=== PATIENT | female | born 1945 | race Caucasian/White ===

== ENCOUNTER 2018-09-07 03:00 | Inpatient (IN) | payer MEDICARE, OTHER ==
[2018-09-07] MEDS ORDERED: Acetaminophen TAB* 325 MG PO PRN (14:28)
[2018-09-07] MEDS ORDERED: Simethicone TAB* 80 MG TAB.CHEW PO PRN (14:28)
[2018-09-07] MEDS ORDERED: oxyCODONE TAB* 5 MG TAB PO PRN (14:28)
[2018-09-07] MEDS: NS 0.9% 1000 ML* 1,000 ML IV SCH (16:30)
[2018-09-07] MEDS: Enoxaparin(*) 40 MG/0.4 ML SYR SUBCUT SCH (16:30)
[2018-09-07] MEDS: Morphine TAB Extended Release (*) 15 MG TAB.ER PO SCH (20:50)
[2018-09-08] MEDS: NS 0.9% 1000 ML* 1,000 ML IV SCH (00:47)
[2018-09-08 05:28] LABS: Hematocrit 23 % (35-47); Hemoglobin 7.7 g/dl (12.0-16.0); Mean Corpuscular HGB Conc 34 g/dl (31-36); Mean Corpuscular Hemoglobin 28 pg (27-31); Mean Corpuscular Volume 83 fL (80-97); Platelet Count 194 10^3/ul (150-450); Red Blood Count 2.72 10^6/ul (4.00-5.40); Red Cell Distribution Width 16 % (10.5-15); White Blood Count 10.3 10^3/ul (3.5-10.8)
[2018-09-08 05:46] LABS: EGFR Non-African American 72.8 (>60)
[2018-09-08] MEDS: Omeprazole CAP* 20 MG PO SCH (09:49)
[2018-09-08] MEDS: Morphine TAB Extended Release (*) 15 MG TAB.ER PO SCH ×3 (09:49→21:22)
[2018-09-08] MEDS ORDERED: NS 0.9% 1000 ML* 1,000 ML IV SCH (12:33)
--- NOTE | 2018-09-08 12:44 | PN ---
Progress Note - Progress Note Date of Service: 09/08/18 SOAP: Subjective: [Admitted yesterday with severe fatigue and dehydration after a period of diarrhea. She received IV fluids and feels much better this am. No abd pain, n /v/d. She does have a productive cough. No fevers overnight. CXR suggestive of RLL PNA with peripneumonic effusion.] Objective: [ Laboratory Results - last 24 hr 09/07/18 09/08/18 09/08/18 16:50 05:05 05:05 WBC 10.3 RBC 2.72 L Hgb 7.7 L Hct 23 L MCV 83 MCH 28 MCHC 34 RDW 16 H Plt Count 194 MPV 7.0 L Sodium 133 L Potassium 3.7 Chloride 106 Carbon Dioxide 23 Anion Gap 4 BUN 19 Creatinine 0.78 Est GFR ( Amer) 88.1 Est GFR (Non-Af Amer) 72.8 BUN/Creatinine Ratio 24.4 H Glucose 96 Calcium 7.9 L Magnesium 2.0 Iron 16 L TIBC 153 L % Saturation 10 L Unsat Iron Binding < 138 Transferrin 109 L Ferritin 509.7 H Total Bilirubin 0.60 AST 39 ALT 14 Alkaline Phosphatase 57 Total Protein 5.3 L Albumin 2.4 L Globulin 2.9 Albumin/Globulin Ratio 0.8 L Vitamin B12 09/08/18 09:00 WBC RBC Hgb Hct MCV MCH MCHC RDW Plt Count MPV Sodium Potassium Chloride Carbon Dioxide Anion Gap BUN Creatinine Est GFR ( Amer) Est GFR (Non-Af Amer) BUN/Creatinine Ratio Glucose Calcium Magnesium Iron TIBC % Saturation Unsat Iron Binding Transferrin Ferritin Total Bilirubin AST ALT Alkaline Phosphatase Total Protein Albumin Globulin Albumin/Globulin Ratio Vitamin B12 1394 H Acetaminophen (Tylenol Tab*) 650 mg PO Q4HR PRN PRN Reason: PAIN Enoxaparin Sodium (Lovenox(*)) 40 mg SUBCUT Q24H [facility] Last Admin: 09/07/18 16:30 Dose: 40 mg Levofloxacin/Dextrose (Levaquin 750 Mg Ivpremix(*)) 750 mg in 150 mls @ 100 mls /hr IVPB Q24H [facility] Morphine Sulfate (Ms Contin(*)) 15 mg PO TID [facility] Last Admin: 09/08/18 09:49 Dose: 15 mg Omeprazole (Prilosec Cap*) 20 mg PO DAILY@0730 [facility] Last Admin: 09/08/18 09:49 Dose: 20 mg Ondansetron HCl (Zofran Inj*) 4 mg IV Q6H PRN PRN Reason: NAUSEA Oxycodone HCl (Roxycodone Tab*) 5 mg PO Q6H PRN PRN Reason: PAIN Simethicone (Mylicon Tab*) 80 mg PO Q6HR PRN PRN Reason: INDIGESTION Vital Signs: Temp Pulse Resp BP Pulse Ox 98.5 F 97 16 119/62 97 09/08/18 07:39 09/08/18 07:39 09/08/18 09:49 09/08/18 07:39 09/08/18 07:39 Exam: Gen: 73 yo female who appears mildly ill but in NAD and accompanied by her CV: RRR, no m/r/g Resp: few crackles in RLL Abd: soft nonTTP Ext: no edema Skin: stage 2 decubitus ulcer over sacrum] Assessment: [73 yo female with metastatic esophageal CA admitted with severe malaise, dehydration following a period of diarrhea. She has spent most of the last week in bed. CXR shows RLL infiltrate.] Plan: [1. PNA - RLL infiltrate - start Levaquin IV - afebrile 2. Anemia - multifactorial mild iron deficiency and chemotherapy related - transfuse 2U PRBCs today 3. Sacral ulcer - apply barrier cream - no evidence of secondary infection at this time 4. Esophageal CA - hold chemotherapy until recovered 5. Malaise/deconditioning - PT eval Dispo: anticipate dc home within the next few days]
[2018-09-08] MEDS: Levofloxacin 750 MG IVPREMIX(* 750 MG/150 ML BAG IVPB SCH (13:16)
[2018-09-08 15:58] LABS: Urine Appearance Cloudy; Urine Blood 1+ (Negative); Urine Color Amber; Urine Ketones Trace (Negative); Urine Protein Negative (Negative); Urine Red Blood Cell 1+(3-5/hpf) (Absent); Urine Specific Gravity 1.025 (1.010-1.030); Urine Urobilinogen Positive (Negative); Urine White Blood Cell 3+(>20/hpf) (Absent)
[2018-09-08] MEDS: Enoxaparin(*) 40 MG/0.4 ML SYR SUBCUT SCH (17:38)
[2018-09-09] MEDS: Ondansetron INJ* 2 MG/ML VIAL IV PRN ×3 (01:36→23:34)
[2018-09-09 09:30] LABS: Hematocrit 31 % (35-47); Hemoglobin 10.6 g/dl (12.0-16.0); Mean Corpuscular HGB Conc 34 g/dl (31-36); Mean Corpuscular Hemoglobin 29 pg (27-31); Mean Corpuscular Volume 84 fL (80-97); Platelet Count 200 10^3/ul (150-450); Red Blood Count 3.71 10^6/ul (4.00-5.40); Red Cell Distribution Width 17 % (10.5-15); White Blood Count 10.1 10^3/ul (3.5-10.8)
[2018-09-09 09:44] LABS: EGFR Non-African American 82.5 (>60)
[2018-09-09] MEDS: Morphine TAB Extended Release (*) 15 MG TAB.ER PO SCH ×3 (10:23→21:16)
[2018-09-09] MEDS: Omeprazole CAP* 20 MG PO SCH (10:23)
--- NOTE | 2018-09-09 10:31 | PN ---
Progress Note - Progress Note Date of Service: 09/09/18 SOAP: Subjective: []Feeling better today. States BMs normal. Has been up with nursing to bathroom. PT report released to nursing mobility. Moving independently in bed though tending to lay on her back. notes poor intake today and over last week. States she threw up this AM and is curious if this is related to auto-sub of omeprazole for esomeprazole. is curious about care of buttocks. Per nursing report pt. hallucinated dogs nipping at her feet this AM. When questioned is vague regarding her mental status, however then questions "why is she so confused." Medications: Acetaminophen (Tylenol Tab*) 650 mg PO Q4HR PRN PRN Reason: PAIN Last Admin: 09/08/18 19:31 Dose: 650 mg Enoxaparin Sodium (Lovenox(*)) 40 mg SUBCUT Q24H [facility] Last Admin: 09/08/18 17:38 Dose: 40 mg Heparin Sodium (Porcine) (Heparin Flush Port (Ivad)) 5 ml FLUSH DAILY [facility]; Protocol Levofloxacin/Dextrose (Levaquin 750 Mg Ivpremix(*)) 750 mg in 150 mls @ 100 mls /hr IVPB Q24H [facility] Last Admin: 09/08/18 13:16 Dose: 100 mls/hr Morphine Sulfate (Ms Contin(*)) 15 mg PO TID [facility] Last Admin: 09/09/18 10:23 Dose: 15 mg Omeprazole (Prilosec Cap*) 20 mg PO DAILY@0730 [facility] Ondansetron HCl (Zofran Inj*) 4 mg IV Q6H PRN PRN Reason: NAUSEA Last Admin: 09/09/18 01:36 Dose: 4 mg Oxycodone HCl (Roxycodone Tab*) 5 mg PO Q6H PRN PRN Reason: PAIN Simethicone (Mylicon Tab*) 80 mg PO Q6HR PRN PRN Reason: INDIGESTION Triamcinolone Acetonide (Triamcinolone 0.1% Paste *) 1 applic TOPICAL TID PRN PRN Reason: PAIN Objective: [] Vital Signs Temp Pulse Resp BP Pulse Ox 97.8 F 89 18 113/64 99 09/09/18 07:40 09/09/18 07:40 09/09/18 10:23 09/09/18 07:40 09/09/18 07:40 Alert and oriented, however incomplete comprehension of specifics - occ. wording finding difficulty and some abstract thought MCCALL, with strength 4/4 bilat. HRR, S1S2 LS clear bilat. +BS, abd. soft and non-tender +PP=bilat, no edema Laboratory Results - last 24 hr 09/08/18 09/08/18 09/09/18 05:05 15:00 09:10 WBC 10.1 RBC 3.71 L Hgb 10.6 L Hct 31 L MCV 84 MCH 29 MCHC 34 RDW 17 H Plt Count 200 MPV 7.0 L Sodium Potassium Chloride Carbon Dioxide Anion Gap BUN Creatinine Est GFR ( Amer) Est GFR (Non-Af Amer) BUN/Creatinine Ratio Glucose Calcium Total Bilirubin AST ALT Alkaline Phosphatase Total Protein Albumin Globulin Albumin/Globulin Ratio Urine Color Astrid Urine Appearance Cloudy Urine pH 5.0 Ur Specific [place] 1.025 Urine Protein Negative Urine Ketones Trace A Urine Blood 1+ A Urine Nitrate Negative Urine Bilirubin Negative Urine Urobilinogen Positive A Ur Leukocyte Esterase 2+ A Urine WBC (Auto) 3+(>20/hpf) A Urine RBC (Auto) 1+(3-5/hpf) A Ur Squamous Epith Cells Present A Urine Bacteria Absent Urine Glucose Negative Blood Type O Positive Antibody Screen Negative Crossmatch See Detail 09/09/18 09:10 WBC RBC Hgb Hct MCV MCH MCHC RDW Plt Count MPV Sodium 134 L Potassium 3.5 Chloride 105 Carbon Dioxide 24 Anion Gap 5 BUN 14 Creatinine 0.70 Est GFR ( Amer) 99.8 Est GFR (Non-Af Amer) 82.5 BUN/Creatinine Ratio 20.0 Glucose 106 H Calcium 8.1 L Total Bilirubin 1.00 AST 28 ALT 15 Alkaline Phosphatase 59 Total Protein 5.8 L Albumin 2.5 L Globulin 3.3 Albumin/Globulin Ratio 0.8 L Urine Color Urine Appearance Urine pH Ur Specific [place] Urine Protein Urine Ketones Urine Blood Urine Nitrate Urine Bilirubin Urine Urobilinogen Ur Leukocyte Esterase Urine WBC (Auto) Urine RBC (Auto) Ur Squamous Epith Cells Urine Bacteria Urine Glucose Blood Type Antibody Screen Crossmatch Assessment: []73 yo old female with metastatic esophageal cancer, recently progressive off therapy with re-initiation of Taxol/Ramicirumab (C1D15 08/25), admitted with severe dehydration related to diarrhea found to have a RLL PNA and now with concern for altered mental status. Plan: []1. Altered mental status with hallucinations: concerning for [employer] mets or leptomeningeal involvement, though acute illness/dehydration with admission may cause some delirium and I am concerned for underlying progressive decline r/t cancer. - Obtain MRI w/wo contrast 2. Decubitus and anorexia: check pre-albumin, suspect severe caloric protein malnutrition - continue barrier cream, nursing to provide some education to re: care 3. Anemia s/p 2 units PRBCs: likely r/t chemotherapy, though to be cautious will check stool occult blood 4. Diarrhea with subsequent dehydration: appears resolved, question of viral illness d/t acute onset after feeling very well, however potentially related to tx., no further intervention at this time
[2018-09-09 10:54] LABS: ABS Basophils 0 10^3/ul (0-0.2); ABS Eosinophils 0 10^3/ul (0-0.6); ABS Lymphocytes 0.6 10^3/ul (1.0-4.8); ABS Neutrophils 8.5 10^3/ul (1.5-7.7); ABS Nucleated RBC 0 10^3/ul; Eosinophil % 0.2 %; Lymphocyte % 5.6 %; Nucleated Red Blood Cells % 0.1
[2018-09-09] MEDS: Triamcinolone PASTE 0.1% (NF) 5 GM TUBE TOPICAL PRN (14:16)
[2018-09-09] MEDS: Levofloxacin 750 MG IVPREMIX(* 750 MG/150 ML BAG IVPB SCH (14:16)
[2018-09-09] MEDS ORDERED: Gadoteridol* (CONTRAST) 279.3 MG/ML 10 ML IV ONE (16:23)
[2018-09-09] MEDS: Enoxaparin(*) 40 MG/0.4 ML SYR SUBCUT SCH (17:30)
[2018-09-10] MEDS: Morphine TAB Extended Release (*) 15 MG TAB.ER PO SCH ×3 (08:07→22:25)
[2018-09-10] MEDS: Omeprazole CAP* 20 MG PO SCH (08:07)
[2018-09-10] MEDS: Ondansetron INJ* 2 MG/ML VIAL IV PRN (08:08)
--- NOTE | 2018-09-10 08:55 | PN ---
Progress Note - Progress Note Date of Service: 09/10/18 SOAP: Subjective: []She is feeling better then first few days. She is oriented to hospital today. Pain is better on Morphine. Not eating much at all, is getting up out of bed some. Skin ulcer has not gotten better. Still very weak. Wants to go home. Acetaminophen (Tylenol Tab*) 650 mg PO Q4HR PRN PRN Reason: PAIN Last Admin: 09/08/18 19:31 Dose: 650 mg Enoxaparin Sodium (Lovenox(*)) 40 mg SUBCUT Q24H [facility] Last Admin: 09/09/18 17:30 Dose: 40 mg Heparin Sodium (Porcine) (Heparin Flush Port (Ivad)) 5 ml FLUSH DAILY [facility]; Protocol Last Admin: 09/10/18 08:08 Dose: 5 ml Levofloxacin/Dextrose (Levaquin 750 Mg Ivpremix(*)) 750 mg in 150 mls @ 100 mls /hr IVPB Q24H [facility] Last Admin: 09/09/18 14:16 Dose: 100 mls/hr Megestrol Acetate (Megestrol Susp*) 800 mg PO DAILY [facility] Morphine Sulfate (Ms Contin(*)) 15 mg PO TID [facility] Last Admin: 09/10/18 08:07 Dose: 15 mg Omeprazole (Prilosec Cap*) 20 mg PO DAILY@0730 [facility] Last Admin: 09/10/18 08:07 Dose: 20 mg Ondansetron HCl (Zofran Inj*) 4 mg IV Q6H PRN PRN Reason: NAUSEA Last Admin: 09/10/18 08:08 Dose: 4 mg Oxycodone HCl (Roxycodone Tab*) 5 mg PO Q6H PRN PRN Reason: PAIN Simethicone (Mylicon Tab*) 80 mg PO Q6HR PRN PRN Reason: INDIGESTION Triamcinolone Acetonide (Triamcinolone 0.1% Paste *) 1 applic TOPICAL TID PRN PRN Reason: PAIN Last Admin: 09/09/18 14:16 Dose: 1 applic Objective: [] Vital Signs Temp Pulse Resp BP Pulse Ox 97.5 F 100 18 119/70 99 09/10/18 02:22 09/10/18 02:22 09/10/18 08:09/10/18 02:22 12/07/18 02:22 HEENT: soar on lip is getting better, no other oral lesions pale CTA RRR S1S2 +BS NT ND Ext muscle atrophy, good pulses no edema did not evaluate ulcer today Assessment: []73 yo old female with metastatic esophageal cancer, recently progressive off therapy with re-initiation of Taxol/Ramicirumab (C1D15 08/25), admitted with severe dehydration related to diarrhea found to have a RLL PNA. She has marked protein calorie malnutrition and compromised PS. Hospital course complicated by delirium. Plan: []1. Altered mental status with hallucinations. MRI negative, suspect delirium. - Avoid benzos, anto-cholenergic - Move to bed near window, orient frequently. 2. Decubitus ulcer. Rotate pressure and address per wound care. 3. Severe caloric protein malnutrition. Nutrition consult, Megase 800 mg po daily. 4. Anemia s/p 2 units PRBCs, follow 5. Diarrhea with subsequent dehydration: appears resolved, question of viral illness d/t acute onset after feeling very well, however potentially related to tx., no further intervention at this time. 6. Pneumonia, will continue Levaquin.
[2018-09-10] MEDS: Triamcinolone PASTE 0.1% (NF) 5 GM TUBE TOPICAL PRN (09:00)
[2018-09-10] MEDS: Megestrol SUSP* 400 MG/10 ML UDC PO SCH (09:33)
[2018-09-10] MEDS: Levofloxacin 750 MG IVPREMIX(* 750 MG/150 ML BAG IVPB SCH (14:39)
[2018-09-10] MEDS: Enoxaparin(*) 40 MG/0.4 ML SYR SUBCUT SCH (14:40)
[2018-09-11 06:26] LABS: Hematocrit 32 % (35-47); Hemoglobin 10.6 g/dl (12.0-16.0); Mean Corpuscular HGB Conc 33 g/dl (31-36); Mean Corpuscular Hemoglobin 28 pg (27-31); Mean Corpuscular Volume 85 fL (80-97); Platelet Count 219 10^3/ul (150-450); Red Blood Count 3.76 10^6/ul (4.00-5.40); Red Cell Distribution Width 17 % (10.5-15); White Blood Count 10.1 10^3/ul (3.5-10.8)
[2018-09-11 06:47] LABS: EGFR Non-African American 64.2 (>60)
[2018-09-11 08:41] LABS: ABS Basophils 0 10^3/ul (0-0.2); ABS Eosinophils 0 10^3/ul (0-0.6); ABS Lymphocytes 0.8 10^3/ul (1.0-4.8); ABS Monocytes 1.2 10^3/ul (0-0.8); ABS Nucleated RBC 0 10^3/ul; Eosinophil % 0.1 %; Lymphocyte % 7.9 %; Nucleated Red Blood Cells % 0
[2018-09-11] MEDS: Omeprazole CAP* 20 MG PO SCH (08:49)
[2018-09-11] MEDS: Morphine TAB Extended Release (*) 15 MG TAB.ER PO SCH ×3 (08:49→20:09)
[2018-09-11] MEDS: Megestrol SUSP* 400 MG/10 ML UDC PO SCH (08:50)
[2018-09-11] MEDS ORDERED: Polyethylene Glycol 3350* 17 GM PACKET PO ONE (11:03)
--- NOTE | 2018-09-11 11:03 | PN ---
Progress Note - Progress Note Date of Service: 09/11/18 SOAP: Subjective: [] Looks better today. Eating more with Megace. Had a good lunch yesterday and an ok dinner. Trying shakes. Feels stronger, still not walking. Acetaminophen (Tylenol Tab*) 650 mg PO Q4HR PRN PRN Reason: PAIN Last Admin: 09/08/18 19:31 Dose: 650 mg Enoxaparin Sodium (Lovenox(*)) 40 mg SUBCUT Q24H [facility] Last Admin: 09/10/18 14:40 Dose: 40 mg Heparin Sodium (Porcine) (Heparin Flush Port (Ivad)) 5 ml FLUSH DAILY [facility]; Protocol Last Admin: 09/11/18 08:52 Dose: 5 ml Levofloxacin/Dextrose (Levaquin 750 Mg Ivpremix(*)) 750 mg in 150 mls @ 100 mls /hr IVPB Q24H [facility] Last Admin: 09/10/18 14:39 Dose: 100 mls/hr Megestrol Acetate (Megestrol Susp*) 800 mg PO DAILY [facility] Last Admin: 09/11/18 08:50 Dose: 800 mg Morphine Sulfate (Ms Contin(*)) 15 mg PO TID [facility] Last Admin: 09/11/18 08:49 Dose: 15 mg Omeprazole (Prilosec Cap*) 20 mg PO DAILY@0730 [facility] Last Admin: 09/11/18 08:49 Dose: 20 mg Ondansetron HCl (Zofran Inj*) 4 mg IV Q6H PRN PRN Reason: NAUSEA Last Admin: 09/10/18 08:08 Dose: 4 mg Oxycodone HCl (Roxycodone Tab*) 5 mg PO Q6H PRN PRN Reason: PAIN Simethicone (Mylicon Tab*) 80 mg PO Q6HR PRN PRN Reason: INDIGESTION Triamcinolone Acetonide (Triamcinolone 0.1% Paste *) 1 applic TOPICAL TID PRN PRN Reason: PAIN Last Admin: 09/10/18 09:00 Dose: 1 applic Objective: [] Vital Signs Temp Pulse Resp BP Pulse Ox 97.5 F 109 18 119/55 100 09/11/18 07:43 09/11/18 07:43 09/11/18 08:49 09/11/18 07:43 09/11/18 07:43 looks good today HEENT: soar on lip is getting better, no other oral lesions pale CTA RRR S1S2 +BS NT ND Ext muscle atrophy, good pulses no edema did not evaluate ulcer today Assessment: []73 yo old female with metastatic esophageal cancer, recently progressive off therapy with re-initiation of Taxol/Ramicirumab (C1D15 08/25), admitted with severe dehydration related to diarrhea found to have a RLL PNA. She has marked protein calorie malnutrition and compromised PS. Hospital course complicated by delirium. 4 Today doing better. Plan: []1. Altered mental status with hallucinations. MRI negative, suspect delirium. - Avoid benzos, anto-cholenergic - Keep window shade up, frequent reminders. - Oriented on my exam today 2. Decubitus ulcer. Rotate pressure and address per wound care. 3. Severe caloric protein malnutrition. - Appetite improved on Megase 800 mg po daily. - Nutrition input appreciated, mild shakes. 4. Anemia s/p 2 units PRBCs, follow 5. Diarrhea. Resolved but now constipated. Colace and will give Miralax prn. 6. Pneumonia, will continue Levaquin for 14 day course 7. Discharge home Thursday with home PT if continues to improve
[2018-09-11] MEDS: Docusate CAP* 100 MG PO PRN (13:35)
[2018-09-11] MEDS: Levofloxacin 750 MG IVPREMIX(* 750 MG/150 ML BAG IVPB SCH (13:36)
[2018-09-11] MEDS: Enoxaparin(*) 40 MG/0.4 ML SYR SUBCUT SCH (16:25)
[2018-09-12 05:33] LABS: ABS Basophils 0 10^3/ul (0-0.2); ABS Eosinophils 0 10^3/ul (0-0.6); ABS Lymphocytes 0.7 10^3/ul (1.0-4.8); ABS Monocytes 0.8 10^3/ul (0-0.8); ABS Neutrophils 4.3 10^3/ul (1.5-7.7); ABS Nucleated RBC 0 10^3/ul; Eosinophil % 0.2 %; Hematocrit 28 % (35-47); Hemoglobin 9.3 g/dl (12.0-16.0); Lymphocyte % 11.4 %; Mean Corpuscular HGB Conc 33 g/dl (31-36); Mean Corpuscular Hemoglobin 28 pg (27-31); Mean Corpuscular Volume 84 fL (80-97); Nucleated Red Blood Cells % 0; Platelet Count 168 10^3/ul (150-450); Red Blood Count 3.33 10^6/ul (4.00-5.40); Red Cell Distribution Width 17 % (10.5-15); White Blood Count 5.9 10^3/ul (3.5-10.8)
[2018-09-12 05:50] LABS: EGFR Non-African American 64.2 (>60)
--- NOTE | 2018-09-12 08:03 | PN ---
Subjective Date of Service: 09/12/18 Interval History: No significant overnight events. Patient has bed alarm on and she states she was trying to get out of bed last night. Feels more oriented today. Appetite picking up. Breathing improving. Still with weak dry cough. Hoping to go home tomorrow. States she has support at home. , daughter and NITHIN will help care for her. Objective Active Medications: Acetaminophen (Tylenol Tab*) 650 mg PO Q4HR PRN PRN Reason: PAIN Last Admin: 09/08/18 19:31 Dose: 650 mg Docusate Sodium (Colace Cap*) 100 mg PO BID PRN PRN Reason: CONSTIPATION Last Admin: 09/11/18 13:35 Dose: 100 mg Enoxaparin Sodium (Lovenox(*)) 40 mg SUBCUT Q24H [facility] Last Admin: 09/11/18 16:25 Dose: 40 mg Heparin Sodium (Porcine) (Heparin Flush Port (Ivad)) 5 ml FLUSH DAILY [facility]; Protocol Last Admin: 09/12/18 04:57 Dose: 5 ml Levofloxacin/Dextrose (Levaquin 750 Mg Ivpremix(*)) 750 mg in 150 mls @ 100 mls /hr IVPB Q24H [facility] Last Admin: 09/11/18 13:36 Dose: 100 mls/hr Megestrol Acetate (Megestrol Susp*) 800 mg PO DAILY [facility] Last Admin: 09/11/18 08:50 Dose: 800 mg Morphine Sulfate (Ms Contin(*)) 15 mg PO TID [facility] Last Admin: 09/11/18 20:09 Dose: 15 mg Omeprazole (Prilosec Cap*) 20 mg PO DAILY@0730 [facility] Last Admin: 09/11/18 08:49 Dose: 20 mg Ondansetron HCl (Zofran Inj*) 4 mg IV Q6H PRN PRN Reason: NAUSEA Last Admin: 09/10/18 08:08 Dose: 4 mg Oxycodone HCl (Roxycodone Tab*) 5 mg PO Q6H PRN PRN Reason: PAIN Simethicone (Mylicon Tab*) 80 mg PO Q6HR PRN PRN Reason: INDIGESTION Triamcinolone Acetonide (Triamcinolone 0.1% Paste *) 1 applic TOPICAL TID PRN PRN Reason: PAIN Last Admin: 09/10/18 09:00 Dose: 1 applic Vital Signs - 8 hr 09/12/18 09/12/18 03:20 03:23 Temperature 97.5 F Pulse Rate 101 Blood Pressure 105/54 (mmHg) O2 Sat by Pulse 94 Oximetry Oxygen Devices in Use Now: None Ears/Nose/Mouth/Throat: Mucous Membranes Moist Neck: Trachea Midline Respiratory: - - diminished breath sounds b/l. No W/R/R Cardiovascular: RRR Abdominal: NL Sounds; No Tenderness; No Distention Extremities: - - +2 pretibial edema Neurological: Alert and Oriented x 3, NL Muscle Strength and Tone - Nutrition: Malnutrition Diagnosis/Plan Malnutrition Assessment by Registered Dietitian: Malnutrition Assessment Clinical Characteristics Acute,Moderate Malnutrition Assessment: - Mild temporal muscle wasting Criteria - > 75% estimated energy expenditure > 7 days Malnutrition Assessment: Pt declined offer for Ensure Enlive. Per Interventions discussion, will send vanilla milkshake today ( 212 kcals, 5 grams of protein). Pt is aware to request these as desired. Malnutrition Assessment: Goals 1. Adequate PO intake to promote lean body mass repletion and maintain hydration w/o undesired wt loss. Result Diagrams: 09/12/18 05:10 09/12/18 05:10 Microbiology and Other Data: Microbiology 09/08/18 15:00 Urine Culture - Final Urine No Growth (<1,000 CFU/mL) Assess/Plan/Problems-Billing Assessment: This is a 73 yr old with esophageal mets, who was admitted for diarrhea, dehydration and weakness found to have PNA - Patient Problems (1) Esophageal cancer Current Visit: Yes Status: Acute Comment: A/P - Metastatic - Per oncology team - Recently on Chemo (2) Pneumonia Current Visit: Yes Status: Acute Code(s): J18.9 - PNEUMONIA, UNSPECIFIED ORGANISM SNOMED Code(s): 885444450 Comment: A Admitted with AMS, dehydration and diarrhea Diarrhea resolved. Clinically alert and oriented. Plan Continue Levaquin PT eval - 2 assist currently - await re-eval to determine if she will have enough support to go home tomorrow (3) Severe protein-calorie malnutrition Current Visit: Yes Status: Acute Code(s): E43 - UNSPECIFIED SEVERE PROTEIN- CALORIE MALNUTRITION SNOMED Code(s): 689369543 Comment: A. Appetite improving. Declined ensure Plan Continue close monitor (4) Anemia Current Visit: Yes Status: Acute Code(s): D64.9 - ANEMIA, UNSPECIFIED SNOMED Code(s): 065031486 Comment: A/P Stable s/p 2 units of PRBCs on admission (5) Decubital ulcer Current Visit: Yes Status: Acute Code(s): L89.90 - PRESSURE ULCER OF UNSPECIFIED SITE, UNSPECIFIED STAGE SNOMED Code(s): 039825186 Comment: A/P - Turn and position SEcondary to rapid decline and limited mobility (6) DVT (deep venous thrombosis) Current Visit: Yes Status: Acute Code(s): I82.409 - ACUTE EMBOLISM AND THOMBOS UNSP DEEP VN UNSP LOWER EXTREMITY SNOMED Code(s): 729065018 Comment: A/P On lovenox (7) Full code status Current Visit: Yes Status: Acute Code(s): Z78.9 - OTHER SPECIFIED HEALTH STATUS SNOMED Code(s): 776802739 Comment: Recommend oncology readdress with patient and her family Status and Disposition: Anticipate possible d/c tomorrow. But concerns with how debilitated she is that she will need at minimum VNS services at home. Would follow up with PT and nursing to ensure safe discharge plan with caring for her at home.
[2018-09-12] MEDS: Megestrol SUSP* 400 MG/10 ML UDC PO SCH (08:53)
[2018-09-12] MEDS: Omeprazole CAP* 20 MG PO SCH (08:54)
[2018-09-12] MEDS: Morphine TAB Extended Release (*) 15 MG TAB.ER PO SCH ×3 (08:55→20:53)
[2018-09-12] MEDS: Levofloxacin 750 MG IVPREMIX(* 750 MG/150 ML BAG IVPB SCH (13:10)
[2018-09-12] MEDS: Enoxaparin(*) 40 MG/0.4 ML SYR SUBCUT SCH (15:28)
[2018-09-13] MEDS: Morphine TAB Extended Release (*) 15 MG TAB.ER PO SCH ×2 (08:17→20:57)
[2018-09-13] MEDS: Omeprazole CAP* 20 MG PO SCH (08:17)
[2018-09-13] MEDS: Megestrol SUSP* 400 MG/10 ML UDC PO SCH (08:17)
--- NOTE | 2018-09-13 09:22 | PN ---
Progress Note - Progress Note Date of Service: 09/13/18 SOAP: Subjective: []Delerium yesterday. Did not know son's name, did not know where she was. Was not sleeping, up all night Sat. Slept a little more last night. This am AAOx3 and can say why she is in hospital. However, affect altered from baseline and she has no memory of yesterday's events. Denies pain. Eating some but not much. Acetaminophen (Tylenol Tab*) 650 mg PO Q4HR PRN PRN Reason: PAIN Last Admin: 09/08/18 19:31 Dose: 650 mg Docusate Sodium (Colace Cap*) 100 mg PO BID PRN PRN Reason: CONSTIPATION Last Admin: 09/11/18 13:35 Dose: 100 mg Enoxaparin Sodium (Lovenox(*)) 40 mg SUBCUT Q24H [facility] Last Admin: 09/12/18 15:28 Dose: 40 mg Heparin Sodium (Porcine) (Heparin Flush Port (Ivad)) 5 ml FLUSH DAILY [facility]; Protocol Last Admin: 09/13/18 08:17 Dose: 5 ml Levofloxacin/Dextrose (Levaquin 750 Mg Ivpremix(*)) 750 mg in 150 mls @ 100 mls /hr IVPB Q24H [facility] Last Admin: 09/12/18 13:10 Dose: 100 mls/hr Megestrol Acetate (Megestrol Susp*) 800 mg PO DAILY [facility] Last Admin: 09/13/18 08:17 Dose: 800 mg Morphine Sulfate (Ms Contin(*)) 15 mg PO TID [facility] Last Admin: 09/13/18 08:17 Dose: 15 mg Omeprazole (Prilosec Cap*) 20 mg PO DAILY@0730 [facility] Last Admin: 09/13/18 08:17 Dose: 20 mg Ondansetron HCl (Zofran Inj*) 4 mg IV Q6H PRN PRN Reason: NAUSEA Last Admin: 09/10/18 08:08 Dose: 4 mg Oxycodone HCl (Roxycodone Tab*) 5 mg PO Q6H PRN PRN Reason: PAIN Simethicone (Mylicon Tab*) 80 mg PO Q6HR PRN PRN Reason: INDIGESTION Triamcinolone Acetonide (Triamcinolone 0.1% Paste *) 1 applic TOPICAL TID PRN PRN Reason: PAIN Last Admin: 09/10/18 09:00 Dose: 1 applic Objective: [] Vital Signs Temp Pulse Resp BP Pulse Ox 97.6 F 96 16 120/67 99 09/13/18 02:57 09/13/18 02:57 09/13/18 08:17 09/13/18 02:57 09/13/18 02:57 I feel she is still confused relative to baseline mental status. HEENT: soar on lip is getting better, no other oral lesions, mucosa dry. pale CTA RRR S1S2 +BS NT ND Ext muscle atrophy, good pulses no edema did not evaluate ulcer today Assessment: []73 yo old female with metastatic esophageal cancer, recently progressive off therapy with re-initiation of Taxol/Ramicirumab (C1D15 08/25), admitted with severe dehydration related to diarrhea found to have a RLL PNA. She has marked protein calorie malnutrition and compromised PS. Hospital course complicated by delirium. Had been getting better but yesterday more confusion. Delirium is likely multi-factorial from hospital, may be medication induced. Plan: []1. Altered mental status with hallucinations. MRI negative, suspect delirium. - Avoid benzos, anto-cholenergic - Keep window shade up, frequent reminders. - Will stop Levofloxacin, decrease Morphine to 15 mg po bid. 2. Decubitus ulcer. Rotate pressure and address per wound care. 3. Severe caloric protein malnutrition. - Appetite improved on Megase 800 mg po daily. - Nutrition input appreciated, will add mild shakes to each meal. 4. Anemia, drifting down. Check stool occult blood. 5. Diarrhea. Resolved but now constipated. Colace and will give Miralax prn. 6. Pneumonia, stop Levofloxacin as above and follow. 7. Cancer. Check CT to evaluate for response to current therapy as pain is decreased.
[2018-09-13] MEDS ORDERED: Haloperidol TAB* 2 MG PO PRN (09:23)
[2018-09-13] MEDS ORDERED: Iohexol 300* (CONTRAST) 10 ML SDV IV ONE (11:43)
[2018-09-13] MEDS: Enoxaparin(*) 40 MG/0.4 ML SYR SUBCUT SCH (16:52)
[2018-09-13] MEDS: Docusate CAP* 100 MG PO PRN (20:57)
[2018-09-14 05:22] LABS: ABS Basophils 0 10^3/ul (0-0.2); ABS Eosinophils 0 10^3/ul (0-0.6); ABS Lymphocytes 0.8 10^3/ul (1.0-4.8); ABS Monocytes 0.8 10^3/ul (0-0.8); ABS Nucleated RBC 0 10^3/ul; Eosinophil % 0.2 %; Hematocrit 29 % (35-47); Hemoglobin 9.6 g/dl (12.0-16.0); Lymphocyte % 13.9 %; Mean Corpuscular HGB Conc 34 g/dl (31-36); Mean Corpuscular Hemoglobin 29 pg (27-31); Mean Corpuscular Volume 85 fL (80-97); Mean Platelet Volume 6.9 fL (7.4-10.4); Nucleated Red Blood Cells % 0; Platelet Count 158 10^3/ul (150-450); Red Blood Count 3.38 10^6/ul (4.00-5.40); Red Cell Distribution Width 18 % (10.5-15); White Blood Count 5.5 10^3/ul (3.5-10.8)
[2018-09-14 05:44] LABS: EGFR Non-African American 66.8 (>60)
[2018-09-14] MEDS: Megestrol SUSP* 400 MG/10 ML UDC PO SCH (08:29)
[2018-09-14] MEDS: Omeprazole CAP* 20 MG PO SCH (08:29)
[2018-09-14] MEDS: Morphine TAB Extended Release (*) 15 MG TAB.ER PO SCH (08:29)
[2018-09-14 09:22] VITALS: BP 120/41
--- NOTE | 2018-09-14 17:17 | DS ---
CC: Dr. Honey Diaz * DISCHARGE SUMMARY: DATE OF ADMISSION: 09/07/18 DATE OF DISCHARGE: 09/14/18 PRIMARY CARE PROVIDER: Dr. Honey Diaz. PRIMARY ONCOLOGIST AND ATTENDING PHYSICIAN: Dr. Lauro Brito.* (DICTATED BY TERESA RODRIGUEZ) DISCHARGING PROVIDER: TERESA Rodriguez PRIMARY DISCHARGE DIAGNOSES: 1. Pneumonia. 2. Delirium, likely multifactorial. 3. Sacral decubitus ulcer. 4. Severe calorie-protein malnutrition. 5. Metastatic esophageal cancer. DISCHARGE MEDICATIONS: 1. Acetaminophen 650 mg p.o. q.4 hours as needed for pain or fever. 2. Colace 100 mg p.o. daily. 3. Imodium 40 mg p.o. daily as needed for diarrhea. 4. Nexium 40 mg p.o. daily. 5. Zofran 4 mg p.o. q.6 hours as needed. 6. Oxycodone 5 mg p.o. q.6 hours as needed for pain. 7. MiraLAX 17 g p.o. daily as needed for constipation. 8. Compazine 10 mg p.o. q.6 hours as needed for nausea. 9. Senna 1 tablet p.o. at bedtime as needed for constipation. 10. Simethicone 80 mg p.o. q.6 hours as needed for gas. 11. Triamcinolone paste applied topically twice daily. 12. Megace 800 mg p.o. daily. 13. Extended-release morphine 15 mg p.o. twice daily. Medication Changes: 1. Decrease morphine extended release from 3 times daily to twice daily. 2. Start Megace as listed above. HOSPITAL IMAGIN. Chest x-ray shows a right pleural effusion with likely pneumonia in the right lung base. 2. MRI brain shows no abnormally enhancing lesions. 3. CT abdomen and pelvis shows bilateral pleural effusions with nodularity and consolidation of the right lower lobe. There has been an interval development of focal hypoattenuation of the superior margin of the spleen with small amount of pelvic ascites. HOSPITAL COURSE: This is a 73-year-old female with metastatic esophageal cancer who recently restarted chemotherapy with Taxol and ramucirumab, who was admitted to the hospital after being seen by Dr. Brito at an office visit. At that time, she had reported that she had been in bed for the majority of the week prior with severe diarrhea and nausea. Her p.o. intake was extremely poor. She had unfortunately developed a sacral ulceration. She was referred to the hospital and initial CBC showed hemoglobin of approximately 9.5, decreased to 7.7 after rehydration, and she was subsequently transfused 2 units of packed red blood cells. Initial chemistries showed mild acute kidney injury with a creatinine of 1.02 over her baseline of approximately 0.8. Transaminases and total bilirubin were within normal limits. Urinalysis showed trace ketones, blood, leukocyte esterase, and white blood cells, but no growth on culture. Chest x-ray demonstrated a right lower lobe infiltrate with associated parapneumonic effusion and she was subsequently treated for pneumonia with Levaquin. The patient has had a mild cough, but otherwise really no respiratory compromise as a result of her pneumonia. Her strength improved after initiation of antibiotics, but she was intermittently confused during her hospitalization. An MRI of her brain was performed which was negative for malignancy or other acute findings that would explain her change in neurologic status. Her intermittent confusion was thought to most likely be due to acute delirium secondary to her acute illness, hospitalization, and possibly complicated by the use of Levaquin which was subsequently discontinued. Her mental status had recovered to nearly baseline at the time of discharge. DISPOSITION AND FOLLOWUP PLAN: The patient is being discharged to home with medications as listed above. She has followup scheduled with Dr. Brito on and will resume chemotherapy after she has recovered from this acute episode. TERESA RODRIGUEZ [id number]/[facility] #: [id number] [facility]
== END 2018-09-14 11:10 | disposition home or self-care (01) | DRG 193 ==
LOC: MED 03:00 → OBSVTOIN 18:46 → MED 18:46
PROVIDERS: ADMIT Internal Medicine Hematology & Oncology; ATTEND Internal Medicine Hematology & Oncology
DX: J18.9 Pneumonia, unspecified organism (principal); E43 Unspecified severe protein-calorie malnutrition; C15.5 Malignant neoplasm of lower third of esophagus; C77.2 Secondary and unspecified malignant neoplasm of intra-abdominal lymph nodes; C79.71 Secondary malignant neoplasm of right adrenal gland; L89.152 Pressure ulcer of sacral region, stage 2; D70.9 Neutropenia, unspecified; D64.81 Anemia due to antineoplastic chemotherapy; E86.0 Dehydration; D63.0 Anemia in neoplastic disease; R50.81 Fever presenting with conditions classified elsewhere; D50.9 Iron deficiency anemia, unspecified; R41.0 Disorientation, unspecified; R19.7 Diarrhea, unspecified; R62.7 Adult failure to thrive; M79.7 Fibromyalgia; M19.90 Unspecified osteoarthritis, unspecified site; K21.9 Gastro-esophageal reflux disease without esophagitis; Z88.5 Allergy status to narcotic agent; Z68.23 Body mass index [BMI] 23.0-23.9, adult; Z91.048 Other nonmedicinal substance allergy status; Z79.891 Long term (current) use of opiate analgesic; Z79.899 Other long term (current) drug therapy; Z80.1 Family history of malignant neoplasm of trachea, bronchus and lung; Z80.41 Family history of malignant neoplasm of ovary; Z80.51 Family history of malignant neoplasm of kidney; Z80.0 Family history of malignant neoplasm of digestive organs
CPT/HCPCS: 36415; 70553; 71046; 74177; 80053; 81003; 81015; 82607; 82728; 83540; 83550; 83735; 84134; 85025; 85027; 86850; 86900; 86901; 86922; 87086; 99223; 99232; 99239; A9270-GY; A9579; G8978-GP-CH; G8978-GP-CI; G8979-GP-CH; G8979-GP-CI; G8980-GP-CH; G8980-GP-CI; J1642; J1650; J2405; P9016; P9040; Q9967